=== PATIENT | female | born 1995 | race Caucasian/White ===

== ENCOUNTER 2021-04-29 20:22 | Emergency (ER) | payer OTHER, SELFPAY ==
[2021-04-29 20:22] VITALS: BP 130/91; PULSE 98; RESP 16; TEMP 36.2; O2SAT 100; BMI 23.8
--- NOTE | 2021-04-29 22:16 | EX.ED.VIS.PS ---
HPI <Dr. Aguila Lawrence DO - Last Filed: 04/29/21 23:34> HPI - Psych History of Present Illness Chief Complaint: Mental Health Informant: patient and parent Narrative Narrative: 25-year-old female brought in by parent for the evaluation of paranoia. The patient has been seen by a psychiatrist in [place]. She was diagnosed with type I bipolar disorder. Couple months ago she required hospitalization due to paranoia and hallucinations. She states that she was hospitalized at [facility]. This was apparently under a pink slip by her psychiatrist. At the hospital she agreed to a mood stabilizer but no antipsychotics that she had been on them before. She was discharged and made the decision not to follow-up with her doctor or continue any medications. Reportedly the patient was in [place] today was going to travel to a doctor's apartment in [place] and found herself driving down a country road with her dog. Her dog barely was licking her face and she ran into the ditch where she then decided to walk through the [place]. She states she got extremely paranoid believing human trafficking's were after her and she was army crawling through the [place]. Eventually police came up on her and were able to get a tow truck and call her mom. Patient does admit to auditory and visual hallucinations. She does admit to being paranoid. Family is concerned about her overall wellbeing. She states that she has been taking more ADHD medication than she should and has not been sleeping well the past several nights. She denies suicidal or homicidal ideation [facility] <Dr. Aguila Lawrence DO - Last Filed: 04/29/21 23:34> [facility] Medical History ADHD Anxiety Depression Paranoia (psychosis) Home Medications NK 04/29/21 [History Last Taken Unknown] Allergy/AdvReac Type Severity Reaction Status Date / Time No Known Allergies Allergy Verified 04/29/21 20:27 Surgical History History of tonsillectomy Social History (Updated 04/29/21 @ 22:[address] Aguila Lawrence DO) Smoking Status: Current every day smoker tobacco type: cigarettes substance use type: marijuana ROS <Dr. Aguila Lawrence, DO - Last Filed: 04/29/21 23:34> ROS ED Constitutional Constitutional ED: Denies chills, fever(s) or weight loss Eyes Eyes: Denies change in vision or diplopia ENT ENT ED: Denies ear pain, rhinorrhea or sore throat Cardiovascular Cardiovascular: Denies chest pain, orthopnea, palpitations or racing heartbeat Respiratory/Chest Respiratory/Chest: Denies cough, dyspnea or orthopnea Gastrointestinal Gastrointestinal: Denies abdominal pain, diarrhea, nausea or vomiting Genitourinary Genitourinary ED: Denies dysuria, hematuria or urinary frequency Musculoskeletal Musculoskeletal: Denies arthralgias or myalgias Integumentary Denies abscess or rash Neurologic Neurologic: Denies headache(s) or weakness Psychiatric Psychiatric: Reports other Details: Auditory visual hallucinations paranoia ; Denies anxiety, depression, suicidal ideation or suicidal thoughts Endocrine Endocrinology: Denies polydipsia, polyphagia or polyuria Allergic/Immunologic Allergic/Immunologic ED: Denies mouth swelling, tongue swelling or urticaria EXAM <Dr. Aguila Lawrence, DO - Last Filed: 04/29/21 23:34> Physical Exam Const Vital Signs: 04/29/21 20:22 04/30/21 01:15 04/30/21 03:28 Temperature 97.2 F L Temperature Source Temporal Pulse Rate 98 Respiratory Rate 16 18 18 Blood Pressure 130/91 H Blood Pressure Mean 104 Pulse Ox 100 Oxygen Delivery Method Room Air 04/30/21 04:29 Temperature Temperature Source Pulse Rate Respiratory Rate 16 Blood Pressure Blood Pressure Mean Pulse Ox Oxygen Delivery Method Positive well nourished and well developed General Appearance ED: well developed HEENT Reports normocephalic, head/scalp atraumatic, TM's clear and moist mucous membranes normocephalic and atraumatic Tympanic Membrane ED: Yes TM's clear Eyes PERRL and EOMs intact bilaterally Neck no lymphadenopathy, supple and no JVD Resp normal respiratory effort and clear to auscultation bilaterally Cardio regular rate, regular rhythm and no murmurs GI normal to inspection, nondistended, normoactive bowel sounds and non-tender Palpation: soft Back/Spine no CVA tenderness and normal ROM Extremity General Extremety ED: Negative for edema General Extremity: Negative for edema Neuro oriented x3 and CN's II-XII intact bilaterally Sensorium / Orientation: alert Motor Exam: strength 5/5 throughout Psych Attitude: paranoid and withdrawn Activity / Motor Behavior: fidgetting and avoids eye contact Speech: slow Mood & Affect: blunted affect Thought Process: disorganized, flight of ideas, loose associations and tangential Thought Content: No suicidality, No homicidality and hallucination(s) Positive for auditory and visual Skin no rashes or lesions noted Skin Narrative: Patient has extensive bruising and scratches of the lower extremity as well as numerous scratches of the upper extremities. <Dr. Alicia Jack MD - Last Filed: 04/30/21 07:21> Physical Exam Const Vital Signs: 04/29/21 20:22 04/30/21 01:15 04/30/21 03:28 Temperature 97.2 F L Temperature Source Temporal Pulse Rate 98 Respiratory Rate 16 18 18 Blood Pressure 130/91 H Blood Pressure Mean 104 Pulse Ox 100 Oxygen Delivery Method Room Air 04/30/21 04:29 Temperature Temperature Source Pulse Rate Respiratory Rate 16 Blood Pressure Blood Pressure Mean Pulse Ox Oxygen Delivery Method [facility] <Dr. Aguila Lawrence DO - Last Filed: 04/29/21 23:34> [facility] Narrative Medical decision making narrative: Patient's white blood cell count is 16. Which I do not believe is related to infection. Anion gap of 8 with a CO2 of 25. Alcohol negative. Tox is positive for amphetamines methamphetamines and cannabinoids. She is on Adderall and admits to cannabinoid use. test is negative. Covid test is negative. Patient is medically cleared. Crisis will be up to evaluate the patient I believe the patient would benefit from inpatient psychiatric evaluation. I have filled out a pink slip and will place it on the chart. Crisis will be up to evaluate the patient and final disposition was made at that time Lab Data Attestation: I reviewed the patient's lab results. Labs: Laboratory Results - last 24 hr 04/29/21 04/29/21 04/29/21 22:00 22:00 22:00 WBC 16.1 H RBC 4.29 Hgb 14.7 Hct 43.7 MCV 101.9 H MCH 34.3 H MCHC 33.6 RDW Std Deviation 43.9 RDW Coeff of Kizzy 11.7 Plt Count 230 MPV 10.2 Immature Gran % (Auto) 0.400 Neut % (Auto) 72.7 H Lymph % (Auto) 17.3 L [place] % (Auto) 8.9 Eos % (Auto) 0.2 Baso % (Auto) 0.5 Absolute Neuts (auto) 11.7 H Absolute Lymphs (auto) 2.79 Nucleated RBC % 0 Sodium 136 Potassium 3.5 Chloride 103 Carbon Dioxide 25.0 Anion Gap 8 BUN 14 Creatinine 0.82 Estim Creat Clear Calc 99.03 Est GFR (MDRD) Af Amer 110 Est GFR (MDRD) Non-Af 91 BUN/Creatinine Ratio 17.1 Glucose 72 L Calcium 9.2 Total Bilirubin 1.40 H AST 57 H ALT 25 Alkaline Phosphatase 114 Total Creatine Kinase Total Protein 8.0 Albumin 4.4 Globulin 3.6 Albumin/Globulin Ratio 1.2 TSH 0.89 Serum , Qual Urine Opiates Screen Urine Methadone Screen Ur Barbiturates Screen Ur Phencyclidine Scrn Ur Amphetamines Screen U Methamphetamin-MDMA U Benzodiazepines Scrn Urine Cocaine Screen U Cannabinoids Screen Ur Drug Screen Comment Ethyl Alcohol < 3.0 04/29/21 04/29/21 04/29/21 22:07 22:08 22:08 WBC RBC Hgb Hct MCV MCH MCHC RDW Std Deviation RDW Coeff of Kizzy Plt Count MPV Immature Gran % (Auto) Neut % (Auto) Lymph % (Auto) [place] % (Auto) Eos % (Auto) Baso % (Auto) Absolute Neuts (auto) Absolute Lymphs (auto) Nucleated RBC % Sodium Potassium Chloride Carbon Dioxide Anion Gap BUN Creatinine Estim Creat Clear Calc Est GFR (MDRD) Af Amer Est GFR (MDRD) Non-Af BUN/Creatinine Ratio Glucose Calcium Total Bilirubin AST ALT Alkaline Phosphatase Total Creatine Kinase 2926 H Total Protein Albumin Globulin Albumin/Globulin Ratio TSH Serum , Qual NEGATIVE Urine Opiates Screen NEGATIVE Urine Methadone Screen NEGATIVE Ur Barbiturates Screen NEGATIVE Ur Phencyclidine Scrn NEGATIVE Ur Amphetamines Screen POSITIVE H U Methamphetamin-MDMA POSITIVE H U Benzodiazepines Scrn NEGATIVE Urine Cocaine Screen NEGATIVE U Cannabinoids Screen POSITIVE H Ur Drug Screen Comment Ethyl Alcohol <Dr. Alicia Jack MD - Last Filed: 04/30/21 07:21> [facility] Lab Data Labs: Laboratory Results - last 24 hr 04/29/21 04/29/21 04/29/21 22:00 22:00 22:00 WBC 16.1 H RBC 4.29 Hgb 14.7 Hct 43.7 MCV 101.9 H MCH 34.3 H MCHC 33.6 RDW Std Deviation 43.9 RDW Coeff of Kizzy 11.7 Plt Count 230 MPV 10.2 Immature Gran % (Auto) 0.400 Neut % (Auto) 72.7 H Lymph % (Auto) 17.3 L [place] % (Auto) 8.9 Eos % (Auto) 0.2 Baso % (Auto) 0.5 Absolute Neuts (auto) 11.7 H Absolute Lymphs (auto) 2.79 Nucleated RBC % 0 Sodium 136 Potassium 3.5 Chloride 103 Carbon Dioxide 25.0 Anion Gap 8 BUN 14 Creatinine 0.82 Estim Creat Clear Calc 99.03 Est GFR (MDRD) Af Amer 110 Est GFR (MDRD) Non-Af 91 BUN/Creatinine Ratio 17.1 Glucose 72 L Calcium 9.2 Total Bilirubin 1.40 H AST 57 H ALT 25 Alkaline Phosphatase 114 Total Creatine Kinase Total Protein 8.0 Albumin 4.4 Globulin 3.6 Albumin/Globulin Ratio 1.2 TSH 0.89 Serum , Qual Urine Opiates Screen Urine Methadone Screen Ur Barbiturates Screen Ur Phencyclidine Scrn Ur Amphetamines Screen U Methamphetamin-MDMA U Benzodiazepines Scrn Urine Cocaine Screen U Cannabinoids Screen Ur Drug Screen Comment Ethyl Alcohol < 3.0 04/29/21 04/29/21 04/29/21 22:07 22:08 22:08 WBC RBC Hgb Hct MCV MCH MCHC RDW Std Deviation RDW Coeff of Kizzy Plt Count MPV Immature Gran % (Auto) Neut % (Auto) Lymph % (Auto) [place] % (Auto) Eos % (Auto) Baso % (Auto) Absolute Neuts (auto) Absolute Lymphs (auto) Nucleated RBC % Sodium Potassium Chloride Carbon Dioxide Anion Gap BUN Creatinine Estim Creat Clear Calc Est GFR (MDRD) Af Amer Est GFR (MDRD) Non-Af BUN/Creatinine Ratio Glucose Calcium Total Bilirubin AST ALT Alkaline Phosphatase Total Creatine Kinase 2926 H Total Protein Albumin Globulin Albumin/Globulin Ratio TSH Serum , Qual NEGATIVE Urine Opiates Screen NEGATIVE Urine Methadone Screen NEGATIVE Ur Barbiturates Screen NEGATIVE Ur Phencyclidine Scrn NEGATIVE Ur Amphetamines Screen POSITIVE H U Methamphetamin-MDMA POSITIVE H U Benzodiazepines Scrn NEGATIVE Urine Cocaine Screen NEGATIVE U Cannabinoids Screen POSITIVE H Ur Drug Screen Comment Ethyl Alcohol Treatment and Re-Evaluation Comments:: Patient signed out to me pending observation overnight and evaluation by crisis. Crisis does agree patient will require placement. Information has been sent to 2 separate facilities at this time and awaiting acceptance. Patient has been calm and cooperative throughout her observation stay on this shift. Discharge Plan Triage Chief Complaint: Mental Health ED Provider: Aguila Lawrence Dx/Rx/DC Orders Clinical Impression: Acute psychosis Prescriptions: No Action NK RF: 0 Primary Care Provider: Care Physician,No Primary Referrals: Care Physician,No Primary [Primary Care Provider] - Disposition Disposition: Psychiatric Hospital or Unit
[2021-04-29 22:18] LABS: Absolute Lymphocyte Count 2.79 X10^3/uL (0.83-4.51); Absolute Neutrophil Count 11.7 X10^3/uL (2.0-7.7); Basophil# 0.08 X10^3/uL; Basophil% 0.5 % (0-1); Eosinophil# 0.04 X10^3/uL; Eosinophils% 0.2 % (0-5); Hematocrit 43.7 % (37-47); Hemoglobin 14.7 g/dL (12.0-15.0); Lymphocyte # 2.79 X10^3/ul (0.83-4.51); Lymphocyte % 17.3 % (19-41); Mean Corp Hgb Conc 33.6 g/dL (32-36); Mean Corpuscular Hgb 34.3 pg (27.0-32.0); Mean Corpuscular Volume 101.9 fL (81-99); Mean Platelet Vol. 10.2 fl (6.2-12.0); Monocyte# 1.44 X10^3/uL; Monocyte% 8.9 % (0-10); NRBC Flagged by Analyzer 0 % (0-5); Neutrophil % 72.7 % (47-70); Platelet Count 230 K/mm3 (150-450); RBC Distribution Width CV 11.7 % (11.6-14.6); RBC Distribution Width SD 43.9 fl (35.1-43.9); Red Blood Count 4.29 M/mm3 (4.2-5.4); White Blood Count 16.1 K/mm3 (4.4-11.0)
[2021-04-29 22:36] LABS: Internal QC Validated? YES +Cl - CLEAR BKGD; Pregnancy, Serum, hCG Quali. NEGATIVE Negative
[2021-04-29 22:39] LABS: Alcohol, Blood (Medical)-Serum < 3.0 mg/dL
[2021-04-29 22:52] LABS: ALB/GLOB Ratio 1.2 RATIO (0.9-2.4); AST(SGOT) 57 U/L (15-37); Alanine Aminotransfer ALT/SGPT 25 U/L (13-56); Albumin, Serum 4.4 g/dL (3.2-5.0); Alkaline Phosphatase 114 U/L (45-117); Anion Gap 8 (5-15); BUN 14 mg/dL (7-18); BUN/Creat Ratio 17.1 RATIO (10-20); Calcium,Total 9.2 mg/dL (8.5-10.1); Chloride 103 mmol/L (98-107); Creatinine, Serum 0.82 mg/dL (0.55-1.02); EST Glomerular Filtration Rate 91 mL/min (>60); Est Glom Filt Rate - Afr Amer 110 mL/min (>60); Estimated Creatinine Clearance 99.03 ml/min; Globulin 3.6 g/dL (2.2-4.2); Glucose 72 mg/dL (74-106); Potassium 3.5 mmol/L (3.5-5.1); Sodium Level 136 mmol/L (136-145); Thyroid Stim Hormone (TSH) 0.89 uIU/mL (0.358-3.74)
[2021-04-29 22:58] LABS: Amphetamine Urine VISTA POSITIVE (<1000 ng/mL); Barbiturate Urine VISTA NEGATIVE (< 200 ng/mL); Benzodiazepine Urine VISTA NEGATIVE (< 200 ng/mL); Cocaine Urine VISTA NEGATIVE (< 300 ng/mL); Ecstacy Urine VISTA POSITIVE (< 500 ng/mL); Methadone Urine VISTA NEGATIVE (< 300 ng/mL); PCP Urine VISTA NEGATIVE (< 25 ng/mL); THC Urine VISTA POSITIVE (< 50 ng/mL); Vista UDS pH Range 5
--- NOTE | 2021-04-29 23:33 | ED.RN ---
CALLED CRISIS THEY SAID IT WOULD HAVE TO GO TO THE MIDNIGHT PERSON COMING ON. FAXED CHART
[2021-04-30] VITALS (10 sets, daily range): BP systolic 92–114; BP diastolic 60–87; PULSE 80–91; RESP 14–24; TEMP 36.8; O2SAT 97–99
--- NOTE | 2021-04-30 00:45 | ED.RN ---
moved from room 17 to 4 to be closer to nursing station. mother present.
[2021-04-30 01:13] LABS: CPK Total, Creatine Kinase 2926 U/L (26-192)
--- NOTE | 2021-04-30 05:47 | ED.RN ---
PATIENT HAS BEEN REFERRED TO [facility]
--- NOTE | 2021-04-30 07:57 | EKG12_ITS ---
Test Reason : MEDICAL CLEARANCE Blood Pressure : / mmHG Vent. Rate : 092 BPM Atrial Rate : 092 BPM P-R Int : 150 ms QRS Dur : 092 ms QT Int : 352 ms P-R-T Axes : 074 078 059 degrees QTc Int : 435 ms Normal sinus rhythm Normal ECG Confirmed by SWAPNA MCKEE, ISAURA ([id number]), physical therapy nurse PARKER MITCHELL ([id number]) on 05/01/2021 10:01:46 AM Referred By: CORTNEY Confirmed By:ISAURA BARCENAS MD
--- NOTE | 2021-04-30 08:01 | NURSING ---
NO OLD EKGS
--- NOTE | 2021-04-30 08:02 | ED.RN ---
mae joseph called for infromation/report on patient. working on acceptance/denial. pertinent information given. requesting ekg. and pink slip faxed to them
--- NOTE | 2021-04-30 08:06 | ED.RN ---
[facility] returned call with [facility]. [facility] to [facility] transport.
--- NOTE | 2021-04-30 08:41 | ED.RN ---
inofrmed patient regarding acceptance to [facility] in [place]. pt declines offer to call family or friends. pt nubia and cooperative denies questions or concerns.
--- NOTE | 2021-04-30 09:24 | NURSING ---
RIDE COMING BETWEEN 1 AND 2 PM , PER [facility], [facility]
[2021-04-30] MEDS: LORazepam 2 MG/ML Syringe IM (11:24)
--- NOTE | 2021-04-30 11:25 | ED.RN ---
pt stading in doorway stating that she wanted to go outside. pt informed that she would not be able to go outside at this time. pt states to this nurse and pt's mother that she is going to be going outside. at that time this nurse asked the nurse staff community health to page the HRO and security. at this time pt attempted to run for the back doors of the department. pt assisted with 5 staff members back to bed. pt placed in four point locked limb restraints. pt explained that she would be getting medicated to help her calm down. pt was offered medication and a nicotine patch prior to pt's escalating behavior. pt decline both at that time.
--- NOTE | 2021-04-30 11:30 | CM.ED ---
ZACHARY Note ZACHARY noted that patient is on 4 point restraints and given ativan. ZACHARY confirmed this with REY Hair. ZACHARY called Gregoria in Admissions at [facility]. She advised that they do not have restraints so patient will need to be out of restraints and medicated prior to transport. She said that we should be updating them hourly about patient and her status. ZACHARY updated Reginaldo RN and Whitney, Payroll And Benefits Coordinator. ZACHARY unable to update major league baseball player as she is with patient. Mya TOUSSAINT
--- NOTE | 2021-04-30 12:28 | ED.RN ---
pt down to two limbs restrained, meal tray odered. pt explained she will be getting out of restraints soon.
--- NOTE | 2021-04-30 14:07 | CM.ED ---
ZACHARY Note ZACHARY called Ronit at [facility] and updated her that patient was out of 4 points restraint. She said that she will call and arrange transport. Patient's RN, charge out clerk and mental health unit lead psychologist updated. ZACHARY was advised by the RN that patient's mother wanted to speak to . ZACHARY met with mother. She said that she wanted to be sure that patient got treatment at [facility] and that they see her daily as when she was at [facility] she said no one saw her. ZACHARY explained that psych staff will see patient's daily. SW encouraged patient to speak to [facility]. Mother reports that patient had gone to [facility] in [place]. Mother said that when patient went to [facility] then she was pink slipped to [facility]. ZACHARY gave patient's mother the phone number for [facility]. ZACHARY explained that this automobile service writer can not promise as to the care patient will see at [facility] but it has been reported that the facility does a good job. ZACHARY remains available. ZACHARY called Ronit at [facility]. She will need to check with MD to see what time the MD wants patient to come to the facility. Plan: [facility]. Mya TOUSSAINT
--- NOTE | 2021-04-30 14:41 | CM.ED ---
Ronit from [facility] called and she reported that patient will need to be out of restraints 4 hours per MD. Patient's transport scheduled for 7pm. diesel crane operator Noemí chan. [employer] will provide transport. Mya TOUSSAINT
--- NOTE | 2021-04-30 19:29 | NURSING ---
CALLED [facility] FOR ETA AND WAS TOLD THEY SHOULD BE HERE IN ABOUT AN HOUR OR LESS
--- NOTE | 2021-04-30 19:53 | ED.RN ---
pt's mother called and updated that pt's ride has been delayed.
[2021-04-30] MEDS: LORazepam 1 MG Tablet PO (21:07)
== END 2021-04-30 21:45 ==
PROVIDERS: Emergency Provider Emergency Medicine
DX: F23 Brief psychotic disorder (principal); F17.210 Nicotine dependence, cigarettes, uncomplicated
CPT/HCPCS: 80053; 80307; 82077; 82550; 84443; 84703; 85025; 87426; 93005; 96372; 99285